=== PATIENT | male | born 1995 | race Caucasian/White ===

== ENCOUNTER 2020-02-09 05:56 | Emergency (ER) | payer BC ==
[~2020-02-09] VITALS: Ht 177.8 cm; Wt 77.1 kg
--- NOTE | 2020-02-09 06:08 | NUR ---
PT BIBS. TROUBLE BREATHING X 5 DAYS. COUGH. FEVER. TAKING TERAFLU TEMP 97.7 BILAT LEG SORENESS. PT AAOX4, RR EVEN AND UNLABORED ON W NAD NOTED. PT CONNECTED TO THE HAM SMOKER AND POX
[2020-02-09] MEDS ORDERED: predniSONE 20 MG TABLET ONE (06:16)
--- NOTE | 2020-02-09 06:22 | NUR ---
RT CALLED FOR BREATHING TX
[2020-02-09] MEDS ORDERED: predniSONE 50 MG TABLET PO ONE (06:30)
[2020-02-09] MEDS ORDERED: ALBUTEROL SULFATE INH 18 GM HFA.AER.AD IH PRN (06:30)
[2020-02-09] MEDS: ALBUTEROL SULFATE INH 18 GM HFA.AER.AD IH PRN ×2 (06:36→06:39)
--- NOTE | 2020-02-09 06:54 | NUR ---
Patient discharged to home in stable condition. Written and verbal after care instructions given. Patient verbalizes understanding of instruction.Pt ambulatory with a steady gait
[2020-02-09 06:56] VITALS: BP 116/80
== END 2020-02-09 06:56 | disposition home or self-care (01) ==
LOC: ER 05:59
DX: J20.9 Acute bronchitis, unspecified (principal)
CPT/HCPCS: 71045; 99283; J7512